=== PATIENT | male | born 1935 | race Caucasian/White ===

== ENCOUNTER → 2017-03-29 | Outpatient (CLI) | payer MEDICARE, BC ==
[2017-03-29 12:31] LABS: HEMATOCRIT 33.5 % (33.0-50.0); HEMOGLOBIN 10.9 g/dL (11.0-16.0); MCH 31.3 pg (27.0-34.0); MCHC 32.5 gm/dL (32.0-36.5); MCV 96.3 fl (83.0-98.0); MPV 9.4 fl (9.4-12.4); RBC 3.48 M/uL (3.50-5.50); RDW-CV 14.5 % (11.9-14.6); WBC 7.4 K/uL (4.0-11.0)
== END ==
LOC: LGSMG 11:46
PROVIDERS: Internal Medicine Nephrology
DX: Z00.00 Encounter for general adult medical examination without abnormal findings (principal); I25.10 Atherosclerotic heart disease of native coronary artery without angina pectoris; I12.9 Hypertensive chronic kidney disease with stage 1 through stage 4 chronic kidney disease, or unspecified chronic kidney disease; N18.3 Chronic kidney disease, stage 3 (moderate); E78.5 Hyperlipidemia, unspecified; Z79.899 Other long term (current) drug therapy